=== PATIENT | female | born 1935 | race Caucasian/White ===

== ENCOUNTER 2021-02-02 21:23 | Observation (INO) ==
[2021-02-02] MEDS ORDERED: 0.9 % Sodium Chloride 500 ML IVC ONE (22:02)
[2021-02-02 22:25] LABS: Basophils # 0.1 K/mcL (0.0-0.2); Basophils % 0.5 %; Eosinophils # 0.2 K/mcL (0.0-0.6); Eosinophils % 1.8 %; Hematocrit 33.7 % (35.3-44.9); Hemoglobin 10.8 g/dL (11.5-15.4); Immature Granulocytes % 0.4 % (0-4); Lymphocytes # 3.4 K/mcL (0.6-4.6); Lymphocytes % 29.9 %; Mean Corpuscular Volume 99.7 fL (83.0-100.0); Mean Platelet Volume 9.8 fL (9.4-12.4); Monocytes # 0.9 K/mcL (0.0-1.3); Monocytes % 7.8 %; Neutrophils # 6.7 K/mcL (1.6-8.9); Platelet Count 305 K/mcL (140-400); Red Blood Count 3.38 M/mcL (3.82-4.97); Red Cell Distribution Width 15.3 % (11.5-14.5); Segmented Neutrophils % 59.6 %; White Blood Count 11.3 K/mcL (4.3-11.1)
[2021-02-02 22:41] LABS: Troponin I < 0.03 ng/mL (< 0.04)
[2021-02-02 22:43] LABS: Alanine Aminotransferase 7 Units/L (7-52); Albumin/Globulin Ratio 1.4 (1.1-2.2); Alkaline Phosphatase 46 Units/L (34-104); Aspartate Amino Transferase 15 Units/L (13-39); BUN/Creatinine Ratio 14 (6-26); Bilirubin,Total 0.7 mg/dL (0.3-1.0); Blood Urea Nitrogen 14 mg/dL (8-23); Calcium 8.5 mg/dL (8.6-10.3); Carbon Dioxide 18 mEq/L (23-29); Chloride 106 mEq/L (98-107); Globulin 2.1 g/dL (2.4-3.5); Glucose 83 mg/dL (70-105); Osmolality,Calculated 280 (280-300); Potassium 4.1 mEq/L (3.5-5.1); Sodium 135 mEq/L (136-145); Total Protein 5.1 g/dL (6.4-8.9); eGFR For African Americans > 60 (> 60); eGFR For Non-African Americans 53 (> 60)
[2021-02-02 22:53] LABS: Bilirubin,Urine Negative (Negative); Blood,Urine Negative (Negative); Clarity,Urine Slightly Cloudy (Clear); Glucose,Urine (UA) Normal (Normal); Ketones,Urine Negative (Negative); Leukocyte Esterase,Urine Negative (Negative); Nitrite,Urine Negative (Negative); Protein,Urine Negative (Neg-Trace); Urobilinogen,Urine Normal (Normal)
[2021-02-02 22:54] LABS: Color,Urine Light Yellow (Yellow)
[2021-02-03] MEDS ORDERED: Naloxone 0.4 MG/ML INJ IVP PRN (03:04)
[2021-02-03] MEDS ORDERED: Acetaminophen 325 MG TABLET PO PRN (03:04)
[2021-02-03] MEDS ORDERED: Ondansetron ODT 4 MG TAB.RAPDIS SL PRN (03:04)
[2021-02-03] MEDS ORDERED: Isovue-370 500 ML BOTTLE IVP ONE ×4 (03:04→09:49)
[2021-02-03] MEDS: cilostazoL 100 MG TABLET PO SCH ×3 (03:24→22:11)
[2021-02-03] MEDS: Ketorolac OPTH Soln 5 ML BOTTLE RIGHT EYE SCH ×5 (03:25→22:12)
[2021-02-03] MEDS: Levothyroxine 25 MCG TABLET PO SCH (05:19)
[2021-02-03] MEDS: PARoxetine 10 MG TABLET PO SCH (09:55)
[2021-02-03] MEDS ORDERED: Gadolinium Contrast Agent (WT Based) IV PRN (14:17)
[2021-02-04] MEDS: Levothyroxine 25 MCG TABLET PO SCH (06:47)
[2021-02-04] MEDS: PARoxetine 10 MG TABLET PO SCH (10:05)
[2021-02-04] MEDS: cilostazoL 100 MG TABLET PO SCH (10:05)
[2021-02-04] MEDS: Ketorolac OPTH Soln 5 ML BOTTLE RIGHT EYE SCH ×4 (10:05→21:02)
[2021-02-05] MEDS: Levothyroxine 25 MCG TABLET PO SCH (05:26)
[2021-02-05] MEDS: Ketorolac OPTH Soln 5 ML BOTTLE RIGHT EYE SCH ×4 (09:48→21:39)
[2021-02-05] MEDS: PARoxetine 10 MG TABLET PO SCH (09:49)
[2021-02-05 10:04] LABS: Basophils % 0.4 %; Eosinophils # 0.4 K/mcL (0.0-0.6); Eosinophils % 4.2 %; Hematocrit 32.4 % (35.3-44.9); Hemoglobin 10.3 g/dL (11.5-15.4); Immature Granulocytes % 0.7 % (0-4); Lymphocytes # 2.5 K/mcL (0.6-4.6); Lymphocytes % 24.9 %; Mean Corpuscular HGB Conc 31.8 g/dL (31.6-35.5); Mean Corpuscular Hemoglobin 31.6 pg (28.0-33.3); Mean Corpuscular Volume 99.4 fL (83.0-100.0); Mean Platelet Volume 9.5 fL (9.4-12.4); Monocytes # 0.8 K/mcL (0.0-1.3); Monocytes % 7.4 %; Neutrophils # 6.3 K/mcL (1.6-8.9); Platelet Count 315 K/mcL (140-400); Red Blood Count 3.26 M/mcL (3.82-4.97); Red Cell Distribution Width 15.5 % (11.5-14.5); Segmented Neutrophils % 62.4 %; White Blood Count 10.1 K/mcL (4.3-11.1)
[2021-02-05 10:18] LABS: Calcium 8.2 mg/dL (8.6-10.3); Potassium 3.1 mEq/L (3.5-5.1)
[2021-02-05] MEDS: *HR* Heparin 5,000 UNIT/ML VIAL SQ SCH ×2 (14:12→21:43)
[2021-02-06] MEDS: *HR* Heparin 5,000 UNIT/ML VIAL SQ SCH ×2 (06:25→14:34)
[2021-02-06] MEDS: Levothyroxine 25 MCG TABLET PO SCH (06:25)
[2021-02-06] MEDS: PARoxetine 10 MG TABLET PO SCH (08:47)
[2021-02-06] MEDS: Ketorolac OPTH Soln 5 ML BOTTLE RIGHT EYE SCH ×2 (08:47→12:05)
[2021-02-06 11:27] LABS: Basophils # 0.1 K/mcL (0.0-0.2); Basophils % 0.5 %; Eosinophils # 0.3 K/mcL (0.0-0.6); Eosinophils % 3.2 %; Hematocrit 32.1 % (35.3-44.9); Hemoglobin 10.4 g/dL (11.5-15.4); Immature Granulocytes % 0.6 % (0-4); Lymphocytes # 1.9 K/mcL (0.6-4.6); Lymphocytes % 17.4 %; Mean Corpuscular HGB Conc 32.4 g/dL (31.6-35.5); Mean Corpuscular Volume 98.8 fL (83.0-100.0); Mean Platelet Volume 9.4 fL (9.4-12.4); Monocytes # 0.7 K/mcL (0.0-1.3); Monocytes % 6.7 %; Neutrophils # 7.6 K/mcL (1.6-8.9); Platelet Count 287 K/mcL (140-400); Red Blood Count 3.25 M/mcL (3.82-4.97); Red Cell Distribution Width 15.5 % (11.5-14.5); Segmented Neutrophils % 71.6 %; White Blood Count 10.6 K/mcL (4.3-11.1)
[2021-02-06 11:40] LABS: Potassium 3.5 mEq/L (3.5-5.1)
[2021-02-06 16:08] VITALS: BP 145/83; PULSE 75; RESP 16; TEMP 97.5; O2SAT 87
== END 2021-02-06 16:45 ==
LOC: EMEROOGRE 21:23 → INPGRE 21:23
PROVIDERS: ADMIT Internal Medicine; ATTEND Family Medicine

== ENCOUNTER 2021-02-06 11:36 | Inpatient (IN) ==
[2021-02-06] MEDS ORDERED: Naloxone 0.4 MG/ML INJ IVP PRN (17:24)
[2021-02-06] MEDS ORDERED: Ondansetron ODT 4 MG TAB.RAPDIS SL PRN (17:25)
[2021-02-06] MEDS: Ketorolac OPTH Soln 5 ML BOTTLE RIGHT EYE SCH (20:59)
[2021-02-06] MEDS: *HR* Heparin 5,000 UNIT/ML VIAL SQ SCH (20:59)
[2021-02-07] MEDS: *HR* Heparin 5,000 UNIT/ML VIAL SQ SCH ×3 (05:36→20:58)
[2021-02-07] MEDS: Levothyroxine 25 MCG TABLET PO SCH (05:36)
[2021-02-07] MEDS: PARoxetine 10 MG TABLET PO SCH (09:05)
[2021-02-07] MEDS: Ketorolac OPTH Soln 5 ML BOTTLE RIGHT EYE SCH ×4 (09:05→20:57)
[2021-02-07] MEDS: Acetaminophen 325 MG TABLET PO PRN (17:34)
[2021-02-08] MEDS: *HR* Heparin 5,000 UNIT/ML VIAL SQ SCH ×3 (06:21→21:25)
[2021-02-08] MEDS: Levothyroxine 25 MCG TABLET PO SCH (06:22)
[2021-02-08] MEDS: PARoxetine 10 MG TABLET PO SCH (08:38)
[2021-02-08] MEDS: Ketorolac OPTH Soln 5 ML BOTTLE RIGHT EYE SCH ×4 (08:39→21:25)
[2021-02-08] MEDS: Acetaminophen 325 MG TABLET PO PRN (21:25)
[2021-02-09] MEDS: Levothyroxine 25 MCG TABLET PO SCH (04:22)
[2021-02-09] MEDS: *HR* Heparin 5,000 UNIT/ML VIAL SQ SCH ×3 (04:22→21:09)
[2021-02-09 05:11] LABS: BUN/Creatinine Ratio 12 (6-26); Blood Urea Nitrogen 11 mg/dL (8-23); Calcium 7.9 mg/dL (8.6-10.3); Carbon Dioxide 23 mEq/L (23-29); Chloride 107 mEq/L (98-107); Glucose 102 mg/dL (70-105); Osmolality,Calculated 290 (280-300); Potassium 3.2 mEq/L (3.5-5.1); Sodium 140 mEq/L (136-145); eGFR For African Americans > 60 (> 60); eGFR For Non-African Americans 59 (> 60)
[2021-02-09 05:45] LABS: Basophils # 0.1 K/mcL (0.0-0.2); Basophils % 0.5 %; Eosinophils # 0.3 K/mcL (0.0-0.6); Eosinophils % 3.1 %; Hematocrit 32.6 % (35.3-44.9); Hemoglobin 10.5 g/dL (11.5-15.4); Immature Granulocytes % 0.6 % (0-4); Lymphocytes # 2.8 K/mcL (0.6-4.6); Mean Corpuscular HGB Conc 32.2 g/dL (31.6-35.5); Mean Corpuscular Hemoglobin 32.4 pg (28.0-33.3); Mean Corpuscular Volume 100.6 fL (83.0-100.0); Mean Platelet Volume 10.2 fL (9.4-12.4); Monocytes # 0.6 K/mcL (0.0-1.3); Monocytes % 5.7 %; Neutrophils # 6.4 K/mcL (1.6-8.9); Platelet Count 300 K/mcL (140-400); Red Blood Count 3.24 M/mcL (3.82-4.97); Red Cell Distribution Width 15.8 % (11.5-14.5); Segmented Neutrophils % 63.1 %; White Blood Count 10.2 K/mcL (4.3-11.1)
[2021-02-09] MEDS: PARoxetine 10 MG TABLET PO SCH (08:45)
[2021-02-09] MEDS: Ketorolac OPTH Soln 5 ML BOTTLE RIGHT EYE SCH ×4 (08:49→21:09)
[2021-02-10] MEDS: Levothyroxine 25 MCG TABLET PO SCH (05:39)
[2021-02-10] MEDS: *HR* Heparin 5,000 UNIT/ML VIAL SQ SCH ×3 (05:40→20:21)
[2021-02-10] MEDS: PARoxetine 10 MG TABLET PO SCH (09:21)
[2021-02-10] MEDS: Ketorolac OPTH Soln 5 ML BOTTLE RIGHT EYE SCH ×4 (09:21→20:21)
[2021-02-10 20:15] VITALS: RESP 16
[2021-02-11] MEDS: Levothyroxine 25 MCG TABLET PO SCH (04:23)
[2021-02-11] MEDS: *HR* Heparin 5,000 UNIT/ML VIAL SQ SCH ×2 (04:23→15:53)
[2021-02-11 07:09] VITALS: BP 123/62; PULSE 74; TEMP 98.2; O2SAT 95
[2021-02-11] MEDS: Acetaminophen 325 MG TABLET PO PRN (09:24)
[2021-02-11] MEDS: Ketorolac OPTH Soln 5 ML BOTTLE RIGHT EYE SCH ×2 (09:25→15:59)
== END 2021-02-11 16:07 | disposition home health service (06) | DRG 945 ==
LOC: INPGRE 16:42
PROVIDERS: ADMIT Family Medicine; ATTEND Family Medicine

== ENCOUNTER 2021-09-12 12:23 | Inpatient (IN) ==
[~2021-09-12 12:23] MED LIST: Neosporin OINT 15 GM TUBE TP SCH
[2021-09-13] MEDS: *HR* Enoxaparin 30 MG/0.3 ML SYRINGE SQ SCH (05:35)
[2021-09-13] MEDS: Levothyroxine 25 MCG TABLET PO SCH (05:35)
[2021-09-13] MEDS ORDERED: POVIDONE IODINE TP SCH (09:00)
[2021-09-13] MEDS: PARoxetine 10 MG TABLET PO SCH (10:13)
[2021-09-14 04:41] LABS: Basophils % 0.2 %; Eosinophils # 0.2 K/mcL (0.0-0.6); Eosinophils % 1.5 %; Hematocrit 33.5 % (35.3-44.9); Hemoglobin 10.8 g/dL (11.5-15.4); Immature Granulocytes % 0.5 % (0-4); Lymphocytes % 27.3 %; Mean Corpuscular HGB Conc 32.2 g/dL (31.6-35.5); Mean Corpuscular Hemoglobin 32.5 pg (28.0-33.3); Mean Corpuscular Volume 100.9 fL (83.0-100.0); Mean Platelet Volume 10.2 fL (9.4-12.4); Monocytes # 0.7 K/mcL (0.0-1.3); Monocytes % 6.8 %; Neutrophils # 6.9 K/mcL (1.6-8.9); Platelet Count 244 K/mcL (140-400); Red Blood Count 3.32 M/mcL (3.82-4.97); Segmented Neutrophils % 63.7 %; White Blood Count 10.8 K/mcL (4.3-11.1)
[2021-09-14 04:57] LABS: BUN/Creatinine Ratio 23 (6-26); Blood Urea Nitrogen 20 mg/dL (8-23); Carbon Dioxide 28 mEq/L (23-29); Chloride 105 mEq/L (98-107); Glucose 79 mg/dL (70-105); Magnesium 1.6 mg/dL (1.6-2.6); Osmolality,Calculated 288 (280-300); Sodium 138 mEq/L (136-145); eGFR For African Americans > 60 (> 60); eGFR For Non-African Americans > 60 (> 60)
[2021-09-14] MEDS: Levothyroxine 25 MCG TABLET PO SCH (05:18)
[2021-09-14] MEDS: *HR* Enoxaparin 30 MG/0.3 ML SYRINGE SQ SCH (05:18)
[2021-09-14] MEDS: PARoxetine 10 MG TABLET PO SCH (08:18)
[2021-09-15] MEDS: Levothyroxine 25 MCG TABLET PO SCH (05:21)
[2021-09-15] MEDS: *HR* Enoxaparin 30 MG/0.3 ML SYRINGE SQ SCH (05:22)
[2021-09-15 06:08] LABS: Basophils % 0.2 %; Eosinophils # 0.3 K/mcL (0.0-0.6); Eosinophils % 3.1 %; Hematocrit 36.2 % (35.3-44.9); Hemoglobin 11.8 g/dL (11.5-15.4); Immature Granulocytes % 0.5 % (0-4); Lymphocytes # 2.6 K/mcL (0.6-4.6); Lymphocytes % 24.3 %; Mean Corpuscular HGB Conc 32.6 g/dL (31.6-35.5); Mean Corpuscular Hemoglobin 32.8 pg (28.0-33.3); Mean Corpuscular Volume 100.6 fL (83.0-100.0); Mean Platelet Volume 10.1 fL (9.4-12.4); Monocytes # 0.8 K/mcL (0.0-1.3); Platelet Count 255 K/mcL (140-400); Red Cell Distribution Width 15.9 % (11.5-14.5); Segmented Neutrophils % 64.9 %; White Blood Count 10.8 K/mcL (4.3-11.1)
[2021-09-15 06:27] LABS: BUN/Creatinine Ratio 20 (6-26); Blood Urea Nitrogen 18 mg/dL (8-23); Calcium 9.2 mg/dL (8.6-10.3); Carbon Dioxide 28 mEq/L (23-29); Chloride 104 mEq/L (98-107); Glucose 81 mg/dL (70-105); Magnesium 1.7 mg/dL (1.6-2.6); Osmolality,Calculated 287 (280-300); Sodium 138 mEq/L (136-145); eGFR For African Americans > 60 (> 60); eGFR For Non-African Americans 59 (> 60)
[2021-09-15 13:21] LABS: % Iron Saturation 29 % (15-50); Iron 81 mcg/dL (50-170); Transferrin 202 mg/dL (203-362)
[2021-09-16] MEDS: Levothyroxine 25 MCG TABLET PO SCH (05:21)
[2021-09-16] MEDS: *HR* Enoxaparin 30 MG/0.3 ML SYRINGE SQ SCH (05:21)
[2021-09-17] MEDS: Levothyroxine 25 MCG TABLET PO SCH (06:56)
[2021-09-17] MEDS: *HR* Enoxaparin 30 MG/0.3 ML SYRINGE SQ SCH (06:56)
[2021-09-17] MEDS ORDERED: polyethylene glycoL 3350 17 GM POWD.PACK PO PRN (09:27)
[2021-09-17] MEDS ORDERED: Acetaminophen 325 MG TABLET PO PRN (23:44)
[2021-09-18] MEDS: Levothyroxine 25 MCG TABLET PO SCH (05:59)
[2021-09-18] MEDS: *HR* Enoxaparin 30 MG/0.3 ML SYRINGE SQ SCH (05:59)
[2021-09-18 11:37] LABS: Bilirubin,Urine Negative (Negative); Blood,Urine Negative (Negative); Clarity,Urine Clear (Clear); Color,Urine Yellow (Yellow); Glucose,Urine (UA) Normal (Normal); Ketones,Urine Negative (Negative); Leukocyte Esterase,Urine Trace (Negative); Nitrite,Urine Positive (Negative); PH,Urine 6.5 pH Units (5.0-8.0); Protein,Urine Negative (Neg-Trace); Specific Gravity,Urine 1.015 (1.010-1.025); Urobilinogen,Urine Normal (Normal)
[2021-09-18 11:40] VITALS: BP 121/67; PULSE 68; RESP 15; TEMP 98.5; O2SAT 100
[2021-09-18 11:43] LABS: Bacteria,Urine Many per hpf (None-Few); Squamous Epithelial Cell,Urine Few per hpf (None-Few); Transitional Epi Cells,Urine Moderate per hpf (None-Few)
== END 2021-09-18 14:48 | disposition home or self-care (01) | DRG 178 ==
LOC: INPGRE 12:23
PROVIDERS: ADMIT Family Medicine; ATTEND Family Medicine

== ENCOUNTER 2021-11-30 00:51 | Inpatient (IN) ==
[2021-11-30] MEDS ORDERED: 0.9 % Sodium Chloride 1,000 ML IVC ONE (01:06)
[2021-11-30 01:32] LABS: Basophils # 0.1 K/mcL (0.0-0.2); Basophils % 0.4 %; Eosinophils # 0.3 K/mcL (0.0-0.6); Eosinophils % 2.3 %; Hematocrit 39.6 % (35.3-44.9); Hemoglobin 12.8 g/dL (11.5-15.4); Immature Granulocytes % 0.5 % (0-4); Lymphocytes # 2.4 K/mcL (0.6-4.6); Lymphocytes % 20.4 %; Mean Corpuscular HGB Conc 32.3 g/dL (31.6-35.5); Mean Corpuscular Hemoglobin 33.2 pg (28.0-33.3); Mean Corpuscular Volume 102.6 fL (83.0-100.0); Mean Platelet Volume 10.2 fL (9.4-12.4); Monocytes # 0.7 K/mcL (0.0-1.3); Monocytes % 5.7 %; Neutrophils # 8.2 K/mcL (1.6-8.9); Platelet Count 359 K/mcL (140-400); Red Blood Count 3.86 M/mcL (3.82-4.97); Red Cell Distribution Width 14.9 % (11.5-14.5); Segmented Neutrophils % 70.7 %; White Blood Count 11.6 K/mcL (4.3-11.1)
[2021-11-30 01:38] LABS: Prothrombin Time 11.3 Seconds (9.4-12.1)
[2021-11-30 01:40] LABS: Activated Partial Thrombo Time 33.1 Seconds (26.0-36.0)
[2021-11-30 01:46] LABS: Calcium 9.7 mg/dL (8.6-10.3); Potassium 4.5 mEq/L (3.5-5.1)
[2021-11-30 01:49] LABS: Troponin I 0.03 ng/mL (< 0.04)
[2021-11-30 02:02] LABS: Thyroid Stimulating Hormone 5.453 mcIU/mL (0.340-5.600)
[2021-11-30 02:02] LABS: Bilirubin,Urine Negative (Negative); Blood,Urine Negative (Negative); Clarity,Urine Clear (Clear); Color,Urine Yellow (Yellow); Glucose,Urine (UA) Normal (Normal); Ketones,Urine Negative (Negative); Leukocyte Esterase,Urine Small (Negative); Nitrite,Urine Negative (Negative); PH,Urine 5.5 pH Units (5.0-8.0); Protein,Urine 30 mg/dL (Neg-Trace); Urobilinogen,Urine Normal (Normal)
[2021-11-30 02:10] LABS: RBC,Urine 0-3 per hpf (0-3); WBC,Urine 15-30 per hpf (0-3)
[2021-11-30 02:12] LABS: Bacteria,Urine Few per hpf (None-Few); Squamous Epithelial Cell,Urine Few per hpf (None-Few)
[2021-11-30] MEDS ORDERED: cefTRIAXone 1,000 MG in Water for inj. (sterile) 10 ML IVP ONE (02:13)
[2021-11-30] MEDS ORDERED: Naloxone 0.4 MG/ML INJ IVP PRN ×2 (02:39→03:13)
[2021-11-30] MEDS ORDERED: 0.9 % Sodium Chloride 1,000 ML IVC SCH (02:45)
[2021-11-30] MEDS: 0.9 % Sodium Chloride 1,000 ML IVC SCH ×3 (03:57→19:41)
[2021-11-30] MEDS: Levothyroxine 25 MCG TABLET PO SCH (06:29)
[2021-11-30 06:44] LABS: BUN/Creatinine Ratio 21 (6-26); Blood Urea Nitrogen 26 mg/dL (8-23); Calcium 8.2 mg/dL (8.6-10.3); Carbon Dioxide 22 mEq/L (23-29); Chloride 110 mEq/L (98-107); Glucose 95 mg/dL (70-105); Osmolality,Calculated 293 (280-300); Potassium 4.6 mEq/L (3.5-5.1); Sodium 139 mEq/L (136-145); Troponin I < 0.03 ng/mL (< 0.04); eGFR For African Americans 50 (> 60); eGFR For Non-African Americans 41 (> 60)
[2021-11-30] MEDS: Cholecalciferol (D-3) 1,000 UNIT (25MCG) TABLET PO SCH ×2 (08:51→22:45)
[2021-11-30] MEDS: Aspirin 81 MG TAB.CHEW PO SCH (08:51)
[2021-11-30] MEDS: Loratadine 10 MG TABLET PO SCH (08:51)
[2021-11-30 14:48] LABS: Adenovirus Not Detected (Not Detect); Bordetella Pertussis Not Detected (Not Detect); Chlamydophila pneumoniae Not Detected (Not Detect); Coronavirus 229E Not Detected (Not Detect); Coronavirus HKU1 Not Detected (Not Detect); Coronavirus NL63 Not Detected (Not Detect); Coronavirus OC43 Not Detected (Not Detect); Human Metapneumovirus Not Detected (Not Detect); Human Rhinovirus/Enterovirus Not Detected (Not Detect); Influenza A Subtype 2009 H1 Not Detected (Not Detect); Influenza B Not Detected (Not Detect); Mycoplasma pneumoniae Not Detected (Not Detect); Parainfluenza Virus 1 Not Detected (Not Detect); Parainfluenza Virus 2 Not Detected (Not Detect); Parainfluenza Virus 3 Not Detected (Not Detect); Parainfluenza Virus 4 Not Detected (Not Detect); Respiratory Syncytial Virus Not Detected (Not Detect); SARS-CoV-2 Not Detected (Not Detect)
[2021-12-01] MEDS: 0.9 % Sodium Chloride 1,000 ML IVC SCH ×2 (03:30→12:24)
[2021-12-01 05:04] LABS: Basophils # 0.1 K/mcL (0.0-0.2); Basophils % 0.5 %; Eosinophils # 0.5 K/mcL (0.0-0.6); Eosinophils % 3.7 %; Hematocrit 32.9 % (35.3-44.9); Hemoglobin 10.3 g/dL (11.5-15.4); Immature Granulocytes % 0.5 % (0-4); Lymphocytes # 2.3 K/mcL (0.6-4.6); Lymphocytes % 17.4 %; Mean Corpuscular HGB Conc 31.3 g/dL (31.6-35.5); Mean Corpuscular Hemoglobin 32.6 pg (28.0-33.3); Mean Corpuscular Volume 104.1 fL (83.0-100.0); Mean Platelet Volume 10.4 fL (9.4-12.4); Monocytes # 0.5 K/mcL (0.0-1.3); Monocytes % 3.8 %; Neutrophils # 9.7 K/mcL (1.6-8.9); Nucleated Red Blood Cells 0.2 /100 WBC (0); Platelet Count 269 K/mcL (140-400); Red Blood Count 3.16 M/mcL (3.82-4.97); Red Cell Distribution Width 15.1 % (11.5-14.5); Segmented Neutrophils % 74.1 %; White Blood Count 13.1 K/mcL (4.3-11.1)
[2021-12-01 05:20] LABS: Alanine Aminotransferase 30 Units/L (7-52); Albumin/Globulin Ratio 1.4 (1.1-2.2); Alkaline Phosphatase 65 Units/L (34-104); Aspartate Amino Transferase 38 Units/L (13-39); BUN/Creatinine Ratio 19 (6-26); Bilirubin,Total 0.4 mg/dL (0.3-1.0); Blood Urea Nitrogen 20 mg/dL (8-23); Calcium 7.3 mg/dL (8.6-10.3); Carbon Dioxide 16 mEq/L (23-29); Chloride 115 mEq/L (98-107); Globulin 2.1 g/dL (2.4-3.5); Glucose 117 mg/dL (70-105); Osmolality,Calculated 294 (280-300); Potassium 4.6 mEq/L (3.5-5.1); Sodium 140 mEq/L (136-145); Total Protein 5.1 g/dL (6.4-8.9); eGFR For African Americans > 60 (> 60); eGFR For Non-African Americans 50 (> 60)
[2021-12-01] MEDS: Levothyroxine 25 MCG TABLET PO SCH (06:19)
[2021-12-01] MEDS: *HR* Enoxaparin 30 MG/0.3 ML SYRINGE SQ SCH (06:19)
[2021-12-01] MEDS: Loratadine 10 MG TABLET PO SCH (07:34)
[2021-12-01] MEDS: Cholecalciferol (D-3) 1,000 UNIT (25MCG) TABLET PO SCH ×2 (07:35→21:01)
[2021-12-01] MEDS: Aspirin 81 MG TAB.CHEW PO SCH (07:35)
[2021-12-01] MEDS ORDERED: Menthol 1 EACH LOZENGE PO PRN (10:35)
[2021-12-01] MEDS ORDERED: Perflutren Lipid Microsphere 1.3 ML in 0.9 % Sodium Chloride 8.7 ML IVP PRN (10:49)
[2021-12-01] MEDS ORDERED: Ipratropium/Albuterol Neb 3 ML IH PRN (12:53)
[2021-12-01] MEDS ORDERED: cefTRIAXone 1,000 MG in 0.9 % Sodium Chloride 10 ML IVP SCH (13:00)
[2021-12-01] MEDS: MetroNIDAZOLE 500 MG/100 ML 500 MG/100 ML BAG IVPB SCH ×2 (14:01→21:01)
[2021-12-01 15:12] LABS: Calcium 7.4 mg/dL (8.6-10.3); Magnesium 2.3 mg/dL (1.6-2.6); Potassium 4.7 mEq/L (3.5-5.1)
[2021-12-01] MEDS: Budesonide/Formoterol 160/4.5 1 PUFF INH IH SCH ×2 (15:14→21:29)
[2021-12-02 05:01] LABS: Hematocrit 32.9 % (35.3-44.9); Hemoglobin 10.5 g/dL (11.5-15.4); Mean Corpuscular HGB Conc 31.9 g/dL (31.6-35.5); Mean Corpuscular Hemoglobin 33.1 pg (28.0-33.3); Mean Corpuscular Volume 103.8 fL (83.0-100.0); Mean Platelet Volume 10.3 fL (9.4-12.4); Platelet Count 280 K/mcL (140-400); Red Blood Count 3.17 M/mcL (3.82-4.97); Red Cell Distribution Width 15.3 % (11.5-14.5); White Blood Count 11.7 K/mcL (4.3-11.1)
[2021-12-02] MEDS: Levothyroxine 25 MCG TABLET PO SCH (05:13)
[2021-12-02] MEDS: *HR* Enoxaparin 30 MG/0.3 ML SYRINGE SQ SCH (05:14)
[2021-12-02] MEDS: MetroNIDAZOLE 500 MG/100 ML 500 MG/100 ML BAG IVPB SCH (05:14)
[2021-12-02 05:18] LABS: Calcium 7.7 mg/dL (8.6-10.3); Magnesium 2.1 mg/dL (1.6-2.6); Potassium 4.8 mEq/L (3.5-5.1)
[2021-12-02] MEDS: Cholecalciferol (D-3) 1,000 UNIT (25MCG) TABLET PO SCH (09:08)
[2021-12-02] MEDS: Aspirin 81 MG TAB.CHEW PO SCH (09:09)
[2021-12-02] MEDS: Loratadine 10 MG TABLET PO SCH (09:09)
[2021-12-02] MEDS: Budesonide/Formoterol 160/4.5 1 PUFF INH IH SCH (10:38)
[2021-12-02 11:27] VITALS: BP 111/73; PULSE 92; RESP 14; TEMP 97.8; O2SAT 93
== END 2021-12-02 13:10 | disposition short-term general hospital (02) | DRG 306 ==
LOC: EMEROOGRE 00:51 → INPGRE 00:51 → SUATTDRO 02:57 → INPGRE 03:08
PROVIDERS: ADMIT Internal Medicine; ATTEND Family Medicine

== ENCOUNTER 2021-12-11 13:29 | Inpatient (IN) ==
[2021-12-12] MEDS ORDERED: Ipratropium/Albuterol Neb 3 ML IH PRN (20:11)
[2021-12-12] MEDS ORDERED: Furosemide 40 MG TABLET PO PRN (20:11)
[2021-12-12] MEDS ORDERED: polyethylene glycoL 3350 17 GM POWD.PACK PO PRN (20:11)
[2021-12-12] MEDS ORDERED: Ondansetron ODT 4 MG TAB.RAPDIS SL PRN (20:11)
[2021-12-12] MEDS ORDERED: Melatonin 3 MG TABLET PO SCH (21:00)
[2021-12-12] MEDS: Acetaminophen 325 MG TABLET PO PRN (21:49)
[2021-12-12] MEDS: Nystatin SUSP 5 ML UD.LIQ PO SCH (21:49)
[2021-12-12] MEDS: Sildenafil Citrate 20 MG TABLET PO SCH (21:50)
[2021-12-12] MEDS: *HR* Heparin 5,000 UNIT/ML VIAL SQ SCH (21:50)
[2021-12-12] MEDS: Sennosides/Docusate Sodium TABLET PO SCH (21:50)
[2021-12-13 04:49] LABS: Basophils % 0.4 %; Eosinophils # 0.5 K/mcL (0.0-0.6); Eosinophils % 5.3 %; Hemoglobin 10.4 g/dL (11.5-15.4); Immature Granulocytes % 0.6 % (0-4); Lymphocytes # 1.4 K/mcL (0.6-4.6); Lymphocytes % 15.6 %; Mean Corpuscular HGB Conc 32.5 g/dL (31.6-35.5); Mean Corpuscular Hemoglobin 33.1 pg (28.0-33.3); Mean Corpuscular Volume 101.9 fL (83.0-100.0); Monocytes # 0.5 K/mcL (0.0-1.3); Monocytes % 5.3 %; Neutrophils # 6.6 K/mcL (1.6-8.9); Platelet Count 212 K/mcL (140-400); Red Blood Count 3.14 M/mcL (3.82-4.97); Red Cell Distribution Width 18.2 % (11.5-14.5); Segmented Neutrophils % 72.8 %
[2021-12-13 05:02] LABS: BUN/Creatinine Ratio 17 (6-26); Blood Urea Nitrogen 18 mg/dL (8-23); Calcium 8.9 mg/dL (8.6-10.3); Carbon Dioxide 23 mEq/L (23-29); Chloride 106 mEq/L (98-107); Glucose 94 mg/dL (70-105); Osmolality,Calculated 282 (280-300); Potassium 4.4 mEq/L (3.5-5.1); Sodium 135 mEq/L (136-145); eGFR For African Americans > 60 (> 60); eGFR For Non-African Americans 50 (> 60)
[2021-12-13] MEDS: Levothyroxine 25 MCG TABLET PO SCH (05:32)
[2021-12-13] MEDS: Nystatin SUSP 5 ML UD.LIQ PO SCH ×4 (08:20→20:36)
[2021-12-13] MEDS: Sildenafil Citrate 20 MG TABLET PO SCH ×3 (08:20→20:36)
[2021-12-13] MEDS: Fenofibrate 54 MG TABLET PO SCH (08:20)
[2021-12-13] MEDS: Sennosides/Docusate Sodium TABLET PO SCH ×2 (08:20→20:40)
[2021-12-13] MEDS: Loratadine 10 MG TABLET PO SCH (08:20)
[2021-12-13] MEDS ORDERED: Furosemide 20 MG TABLET PO SCH (09:00)
[2021-12-13] MEDS: *HR* Heparin 5,000 UNIT/ML VIAL SQ SCH (09:37)
[2021-12-13] MEDS: Aspirin Enteric Coated 81 MG Tablet PO SCH (09:38)
[2021-12-13] MEDS: Melatonin 3 MG TABLET PO PRN (20:40)
[2021-12-14 04:49] LABS: Basophils # 0.1 K/mcL (0.0-0.2); Basophils % 0.6 %; Eosinophils # 0.7 K/mcL (0.0-0.6); Eosinophils % 7.5 %; Hematocrit 30.1 % (35.3-44.9); Hemoglobin 9.9 g/dL (11.5-15.4); Immature Granulocytes % 0.5 % (0-4); Lymphocytes # 1.7 K/mcL (0.6-4.6); Lymphocytes % 19.7 %; Mean Corpuscular HGB Conc 32.9 g/dL (31.6-35.5); Mean Corpuscular Hemoglobin 33.4 pg (28.0-33.3); Mean Corpuscular Volume 101.7 fL (83.0-100.0); Mean Platelet Volume 10.7 fL (9.4-12.4); Monocytes # 0.5 K/mcL (0.0-1.3); Monocytes % 5.3 %; Neutrophils # 5.8 K/mcL (1.6-8.9); Platelet Count 242 K/mcL (140-400); Red Blood Count 2.96 M/mcL (3.82-4.97); Segmented Neutrophils % 66.4 %; White Blood Count 8.7 K/mcL (4.3-11.1)
[2021-12-14 05:05] LABS: Calcium 8.3 mg/dL (8.6-10.3); Potassium 4.6 mEq/L (3.5-5.1)
[2021-12-14] MEDS: *HR* Enoxaparin 30 MG/0.3 ML SYRINGE SQ SCH (05:10)
[2021-12-14] MEDS: Levothyroxine 25 MCG TABLET PO SCH (05:10)
[2021-12-14] MEDS: Fenofibrate 54 MG TABLET PO SCH (08:47)
[2021-12-14] MEDS: Sildenafil Citrate 20 MG TABLET PO SCH ×3 (08:47→21:52)
[2021-12-14] MEDS: Sennosides/Docusate Sodium TABLET PO SCH ×2 (08:47→21:52)
[2021-12-14] MEDS: Nystatin SUSP 5 ML UD.LIQ PO SCH ×4 (08:48→21:51)
[2021-12-14] MEDS: Aspirin Enteric Coated 81 MG Tablet PO SCH (08:48)
[2021-12-14] MEDS: Loratadine 10 MG TABLET PO SCH (08:48)
[2021-12-14] MEDS: Furosemide 20 MG TABLET PO SCH (16:04)
[2021-12-14] MEDS: Acetaminophen 325 MG TABLET PO PRN (21:51)
[2021-12-14] MEDS: Melatonin 3 MG TABLET PO PRN (21:52)
[2021-12-15] MEDS: Levothyroxine 25 MCG TABLET PO SCH (06:22)
[2021-12-15] MEDS: *HR* Enoxaparin 30 MG/0.3 ML SYRINGE SQ SCH (06:22)
[2021-12-15] MEDS: Aspirin Enteric Coated 81 MG Tablet PO SCH (09:58)
[2021-12-15] MEDS: Sildenafil Citrate 20 MG TABLET PO SCH ×3 (09:58→21:14)
[2021-12-15] MEDS: Loratadine 10 MG TABLET PO SCH (09:58)
[2021-12-15] MEDS: Sennosides/Docusate Sodium TABLET PO SCH ×2 (09:58→21:13)
[2021-12-15] MEDS: Fenofibrate 54 MG TABLET PO SCH (09:58)
[2021-12-15] MEDS: Furosemide 20 MG TABLET PO SCH ×2 (09:59→17:45)
[2021-12-15] MEDS: Nystatin SUSP 5 ML UD.LIQ PO SCH ×4 (09:59→21:14)
[2021-12-15] MEDS: Acetaminophen 325 MG TABLET PO PRN (21:13)
[2021-12-15] MEDS: Melatonin 3 MG TABLET PO PRN (21:14)
[2021-12-16] MEDS: *HR* Enoxaparin 30 MG/0.3 ML SYRINGE SQ SCH (05:43)
[2021-12-16] MEDS: Levothyroxine 25 MCG TABLET PO SCH (05:44)
[2021-12-16] MEDS: Acetaminophen 325 MG TABLET PO PRN (09:08)
[2021-12-16] MEDS: Fenofibrate 54 MG TABLET PO SCH (09:08)
[2021-12-16] MEDS: Loratadine 10 MG TABLET PO SCH (09:09)
[2021-12-16] MEDS: Nystatin SUSP 5 ML UD.LIQ PO SCH ×4 (09:09→20:15)
[2021-12-16] MEDS: Sennosides/Docusate Sodium TABLET PO SCH ×2 (09:10→20:14)
[2021-12-16] MEDS: Furosemide 20 MG TABLET PO SCH ×2 (09:10→15:29)
[2021-12-16] MEDS: Sildenafil Citrate 20 MG TABLET PO SCH ×3 (09:10→20:14)
[2021-12-16] MEDS: Aspirin Enteric Coated 81 MG Tablet PO SCH (09:10)
[2021-12-17] MEDS: Levothyroxine 25 MCG TABLET PO SCH (05:03)
[2021-12-17] MEDS: *HR* Enoxaparin 30 MG/0.3 ML SYRINGE SQ SCH (05:04)
[2021-12-17] MEDS: Furosemide 20 MG TABLET PO SCH ×2 (08:04→15:46)
[2021-12-17] MEDS: Sildenafil Citrate 20 MG TABLET PO SCH ×3 (08:04→20:39)
[2021-12-17] MEDS: Sennosides/Docusate Sodium TABLET PO SCH ×2 (08:04→20:39)
[2021-12-17] MEDS: Loratadine 10 MG TABLET PO SCH (08:04)
[2021-12-17] MEDS: Fenofibrate 54 MG TABLET PO SCH (08:04)
[2021-12-17] MEDS: Nystatin SUSP 5 ML UD.LIQ PO SCH ×4 (08:04→20:41)
[2021-12-17] MEDS: Aspirin Enteric Coated 81 MG Tablet PO SCH (08:04)
[2021-12-18] MEDS: Levothyroxine 25 MCG TABLET PO SCH (05:47)
[2021-12-18] MEDS: *HR* Enoxaparin 30 MG/0.3 ML SYRINGE SQ SCH (05:48)
[2021-12-18] MEDS: Nystatin SUSP 5 ML UD.LIQ PO SCH ×4 (07:56→20:08)
[2021-12-18] MEDS: Acetaminophen 325 MG TABLET PO PRN (07:56)
[2021-12-18] MEDS: Aspirin Enteric Coated 81 MG Tablet PO SCH (07:56)
[2021-12-18] MEDS: Fenofibrate 54 MG TABLET PO SCH (07:57)
[2021-12-18] MEDS: Loratadine 10 MG TABLET PO SCH (07:57)
[2021-12-18] MEDS: Sennosides/Docusate Sodium TABLET PO SCH ×2 (07:58→20:07)
[2021-12-18] MEDS: Sildenafil Citrate 20 MG TABLET PO SCH ×3 (07:58→20:07)
[2021-12-18] MEDS: Furosemide 20 MG TABLET PO SCH (10:26)
[2021-12-19 04:50] LABS: Hematocrit 31.7 % (35.3-44.9); Hemoglobin 10.1 g/dL (11.5-15.4); Mean Corpuscular HGB Conc 31.9 g/dL (31.6-35.5); Mean Corpuscular Hemoglobin 33.1 pg (28.0-33.3); Mean Corpuscular Volume 103.9 fL (83.0-100.0); Mean Platelet Volume 10.4 fL (9.4-12.4); Platelet Count 328 K/mcL (140-400); Red Blood Count 3.05 M/mcL (3.82-4.97); Red Cell Distribution Width 17.7 % (11.5-14.5); White Blood Count 7.2 K/mcL (4.3-11.1)
[2021-12-19 05:16] LABS: Albumin 3.1 g/dL (3.5-5.7); Albumin/Globulin Ratio 1.2 (1.1-2.2); Bilirubin,Total 0.5 mg/dL (0.3-1.0); Calcium 8.5 mg/dL (8.6-10.3); Globulin 2.5 g/dL (2.4-3.5); Magnesium 1.2 mg/dL (1.6-2.6); Total Protein 5.6 g/dL (6.4-8.9)
[2021-12-19] MEDS: Levothyroxine 25 MCG TABLET PO SCH (05:40)
[2021-12-19] MEDS: *HR* Enoxaparin 30 MG/0.3 ML SYRINGE SQ SCH (05:40)
[2021-12-19] MEDS ORDERED: 0.9 % Sodium Chloride 1,000 ML IVC ONE (07:59)
[2021-12-19] MEDS: Sennosides/Docusate Sodium TABLET PO SCH ×2 (08:22→20:39)
[2021-12-19] MEDS: Sildenafil Citrate 20 MG TABLET PO SCH ×3 (08:22→20:39)
[2021-12-19] MEDS: Fenofibrate 54 MG TABLET PO SCH (08:22)
[2021-12-19] MEDS: Acetaminophen 325 MG TABLET PO PRN ×2 (08:23→20:39)
[2021-12-19] MEDS: Loratadine 10 MG TABLET PO SCH (08:23)
[2021-12-19] MEDS: Nystatin SUSP 5 ML UD.LIQ PO SCH ×4 (08:23→20:40)
[2021-12-19] MEDS: Aspirin Enteric Coated 81 MG Tablet PO SCH (08:23)
[2021-12-19] MEDS ORDERED: Magnesium Sulfate 1 GM in 0.9 % Sodium Chloride 1 GM/100 ML IV.SOLN IVPB ONE (08:35)
[2021-12-20] MEDS: *HR* Enoxaparin 30 MG/0.3 ML SYRINGE SQ SCH (06:13)
[2021-12-20] MEDS: Levothyroxine 25 MCG TABLET PO SCH (06:14)
[2021-12-20] MEDS: Fenofibrate 54 MG TABLET PO SCH (08:53)
[2021-12-20] MEDS: Sennosides/Docusate Sodium TABLET PO SCH ×2 (08:53→20:48)
[2021-12-20] MEDS: Acetaminophen 325 MG TABLET PO PRN ×2 (08:53→20:48)
[2021-12-20] MEDS: Nystatin SUSP 5 ML UD.LIQ PO SCH ×4 (08:53→20:49)
[2021-12-20] MEDS: Sildenafil Citrate 20 MG TABLET PO SCH ×3 (08:53→20:48)
[2021-12-20] MEDS: Loratadine 10 MG TABLET PO SCH (08:54)
[2021-12-20] MEDS: Aspirin Enteric Coated 81 MG Tablet PO SCH (08:54)
[2021-12-20] MEDS: Furosemide 20 MG TABLET PO SCH (17:29)
[2021-12-21 05:11] LABS: Hematocrit 30.6 % (35.3-44.9); Hemoglobin 9.8 g/dL (11.5-15.4); Mean Corpuscular Hemoglobin 33.2 pg (28.0-33.3); Mean Corpuscular Volume 103.7 fL (83.0-100.0); Mean Platelet Volume 10.2 fL (9.4-12.4); Platelet Count 314 K/mcL (140-400); Red Blood Count 2.95 M/mcL (3.82-4.97); Red Cell Distribution Width 17.8 % (11.5-14.5); White Blood Count 5.6 K/mcL (4.3-11.1)
[2021-12-21 05:26] LABS: Calcium 8.4 mg/dL (8.6-10.3); Magnesium 1.5 mg/dL (1.6-2.6); Potassium 4.4 mEq/L (3.5-5.1)
[2021-12-21] MEDS: *HR* Enoxaparin 30 MG/0.3 ML SYRINGE SQ SCH (06:22)
[2021-12-21] MEDS: Levothyroxine 25 MCG TABLET PO SCH (06:22)
[2021-12-21] MEDS: Nystatin SUSP 5 ML UD.LIQ PO SCH ×4 (08:53→20:21)
[2021-12-21] MEDS: Fenofibrate 54 MG TABLET PO SCH (08:53)
[2021-12-21] MEDS: Sennosides/Docusate Sodium TABLET PO SCH ×2 (08:53→20:21)
[2021-12-21] MEDS: Loratadine 10 MG TABLET PO SCH (08:54)
[2021-12-21] MEDS: Sildenafil Citrate 20 MG TABLET PO SCH ×3 (08:54→20:22)
[2021-12-21] MEDS: Furosemide 20 MG TABLET PO SCH ×2 (08:54→16:32)
[2021-12-21] MEDS: Aspirin Enteric Coated 81 MG Tablet PO SCH (08:54)
[2021-12-21] MEDS: Acetaminophen 325 MG TABLET PO PRN ×2 (11:43→20:22)
[2021-12-21] MEDS: Melatonin 3 MG TABLET PO PRN (20:21)
[2021-12-22] MEDS: *HR* Enoxaparin 30 MG/0.3 ML SYRINGE SQ SCH (06:02)
[2021-12-22] MEDS: Levothyroxine 25 MCG TABLET PO SCH (06:02)
[2021-12-22] MEDS: Sildenafil Citrate 20 MG TABLET PO SCH ×3 (07:55→20:18)
[2021-12-22] MEDS: Fenofibrate 54 MG TABLET PO SCH (07:56)
[2021-12-22] MEDS: Aspirin Enteric Coated 81 MG Tablet PO SCH (07:56)
[2021-12-22] MEDS: Sennosides/Docusate Sodium TABLET PO SCH ×2 (07:56→20:17)
[2021-12-22] MEDS: Furosemide 20 MG TABLET PO SCH ×2 (07:56→17:00)
[2021-12-22] MEDS: Loratadine 10 MG TABLET PO SCH (07:56)
[2021-12-22] MEDS: Nystatin SUSP 5 ML UD.LIQ PO SCH ×4 (07:56→20:18)
[2021-12-23] MEDS ORDERED: *HR* Metoprolol 5 MG/5 ML VIAL IVP ONE (04:46)
[2021-12-23 05:02] LABS: Hematocrit 29.2 % (35.3-44.9); Hemoglobin 9.3 g/dL (11.5-15.4); Mean Corpuscular HGB Conc 31.8 g/dL (31.6-35.5); Mean Corpuscular Volume 103.5 fL (83.0-100.0); Mean Platelet Volume 10.2 fL (9.4-12.4); Platelet Count 275 K/mcL (140-400); Red Blood Count 2.82 M/mcL (3.82-4.97); Red Cell Distribution Width 17.5 % (11.5-14.5); White Blood Count 5.7 K/mcL (4.3-11.1)
[2021-12-23] MEDS: Levothyroxine 25 MCG TABLET PO SCH (05:17)
[2021-12-23] MEDS: *HR* Enoxaparin 30 MG/0.3 ML SYRINGE SQ SCH (05:17)
[2021-12-23 05:18] LABS: Calcium 9.1 mg/dL (8.6-10.3); Magnesium 1.6 mg/dL (1.6-2.6); Potassium 4.3 mEq/L (3.5-5.1)
[2021-12-23] MEDS: Fenofibrate 54 MG TABLET PO SCH (08:11)
[2021-12-23] MEDS: Aspirin Enteric Coated 81 MG Tablet PO SCH (08:11)
[2021-12-23] MEDS: Furosemide 20 MG TABLET PO SCH ×2 (08:11→16:40)
[2021-12-23] MEDS: Sennosides/Docusate Sodium TABLET PO SCH ×2 (08:11→20:23)
[2021-12-23] MEDS: Loratadine 10 MG TABLET PO SCH (08:11)
[2021-12-23] MEDS: Sildenafil Citrate 20 MG TABLET PO SCH ×3 (08:12→20:23)
[2021-12-23] MEDS: Nystatin SUSP 5 ML UD.LIQ PO SCH ×4 (08:12→20:26)
[2021-12-23] MEDS ORDERED: 0.9 % Sodium Chloride 500 ML IVC ONE (08:43)
[2021-12-23] MEDS ORDERED: DilTIAZem CD (24hr) 120 MG CAP.ER.24H PO SCH (09:00)
[2021-12-23] MEDS ORDERED: 0.9 % Sodium Chloride 1,000 ML IVC SCH ×2 (09:15→11:30)
[2021-12-23] MEDS ORDERED: *HR* Digoxin 0.5 MG/2 ML AMPUL IVP ONE ×2 (13:28→14:34)
[2021-12-24] MEDS: Levothyroxine 25 MCG TABLET PO SCH (04:51)
[2021-12-24] MEDS: *HR* Enoxaparin 30 MG/0.3 ML SYRINGE SQ SCH (04:51)
[2021-12-24 06:39] LABS: Basophils # 0.1 K/mcL (0.0-0.2); Basophils % 1.1 %; Eosinophils # 0.4 K/mcL (0.0-0.6); Eosinophils % 6.6 %; Hematocrit 30.1 % (35.3-44.9); Hemoglobin 9.6 g/dL (11.5-15.4); Immature Granulocytes % 0.4 % (0-4); Lymphocytes # 1.4 K/mcL (0.6-4.6); Lymphocytes % 24.4 %; Mean Corpuscular HGB Conc 31.9 g/dL (31.6-35.5); Mean Corpuscular Volume 103.4 fL (83.0-100.0); Mean Platelet Volume 10.4 fL (9.4-12.4); Monocytes # 0.4 K/mcL (0.0-1.3); Monocytes % 6.9 %; Neutrophils # 3.4 K/mcL (1.6-8.9); Platelet Count 278 K/mcL (140-400); Red Blood Count 2.91 M/mcL (3.82-4.97); Red Cell Distribution Width 17.9 % (11.5-14.5); Segmented Neutrophils % 60.6 %; White Blood Count 5.6 K/mcL (4.3-11.1)
[2021-12-24 06:52] LABS: Calcium 8.8 mg/dL (8.6-10.3); Potassium 4.1 mEq/L (3.5-5.1)
[2021-12-24] MEDS: Loratadine 10 MG TABLET PO SCH (08:28)
[2021-12-24] MEDS: Aspirin Enteric Coated 81 MG Tablet PO SCH (08:28)
[2021-12-24] MEDS: Nystatin SUSP 5 ML UD.LIQ PO SCH ×4 (08:28→20:26)
[2021-12-24] MEDS: Acetaminophen 325 MG TABLET PO PRN ×2 (08:29→20:25)
[2021-12-24] MEDS: Sildenafil Citrate 20 MG TABLET PO SCH ×3 (08:29→20:25)
[2021-12-24] MEDS: Furosemide 20 MG TABLET PO SCH ×2 (08:29→16:27)
[2021-12-24] MEDS: Sennosides/Docusate Sodium TABLET PO SCH ×2 (08:30→20:26)
[2021-12-24] MEDS: Fenofibrate 54 MG TABLET PO SCH (08:30)
[2021-12-24] MEDS ORDERED: *HR* Digoxin 0.125 MG TABLET PO SCH ×3 (09:00→16:42)
[2021-12-24] MEDS: Melatonin 3 MG TABLET PO PRN (20:25)
[2021-12-25 05:07] LABS: Basophils # 0.1 K/mcL (0.0-0.2); Eosinophils # 0.4 K/mcL (0.0-0.6); Eosinophils % 8.1 %; Hematocrit 30.7 % (35.3-44.9); Hemoglobin 9.6 g/dL (11.5-15.4); Immature Granulocytes % 0.4 % (0-4); Lymphocytes # 1.4 K/mcL (0.6-4.6); Lymphocytes % 26.6 %; Mean Corpuscular HGB Conc 31.3 g/dL (31.6-35.5); Mean Corpuscular Hemoglobin 33.1 pg (28.0-33.3); Mean Corpuscular Volume 105.9 fL (83.0-100.0); Mean Platelet Volume 10.5 fL (9.4-12.4); Monocytes # 0.4 K/mcL (0.0-1.3); Monocytes % 7.3 %; Neutrophils # 2.9 K/mcL (1.6-8.9); Platelet Count 271 K/mcL (140-400); Red Cell Distribution Width 17.9 % (11.5-14.5); Segmented Neutrophils % 56.6 %; White Blood Count 5.2 K/mcL (4.3-11.1)
[2021-12-25 05:21] LABS: Calcium 8.9 mg/dL (8.6-10.3); Potassium 4.6 mEq/L (3.5-5.1)
[2021-12-25] MEDS: Levothyroxine 25 MCG TABLET PO SCH (06:08)
[2021-12-25] MEDS: *HR* Enoxaparin 30 MG/0.3 ML SYRINGE SQ SCH (06:08)
[2021-12-25] MEDS: Aspirin Enteric Coated 81 MG Tablet PO SCH (08:21)
[2021-12-25] MEDS: Fenofibrate 54 MG TABLET PO SCH (08:21)
[2021-12-25] MEDS: Acetaminophen 325 MG TABLET PO PRN ×2 (08:21→20:31)
[2021-12-25] MEDS: Sennosides/Docusate Sodium TABLET PO SCH ×2 (08:22→20:31)
[2021-12-25] MEDS: Sildenafil Citrate 20 MG TABLET PO SCH ×3 (08:22→20:31)
[2021-12-25] MEDS: Furosemide 20 MG TABLET PO SCH (08:22)
[2021-12-25] MEDS: Loratadine 10 MG TABLET PO SCH (08:22)
[2021-12-25] MEDS: Nystatin SUSP 5 ML UD.LIQ PO SCH ×4 (08:23→20:32)
[2021-12-25] MEDS: Melatonin 3 MG TABLET PO PRN (20:32)
[2021-12-26] MEDS: Levothyroxine 25 MCG TABLET PO SCH (05:10)
[2021-12-26] MEDS: *HR* Enoxaparin 30 MG/0.3 ML SYRINGE SQ SCH (05:10)
[2021-12-26] MEDS: Fenofibrate 54 MG TABLET PO SCH (08:13)
[2021-12-26] MEDS: Aspirin Enteric Coated 81 MG Tablet PO SCH (08:13)
[2021-12-26] MEDS: Loratadine 10 MG TABLET PO SCH (08:15)
[2021-12-26] MEDS: Nystatin SUSP 5 ML UD.LIQ PO SCH (08:15)
[2021-12-26] MEDS: Sildenafil Citrate 20 MG TABLET PO SCH ×3 (08:15→22:20)
[2021-12-26] MEDS: Acetaminophen 325 MG TABLET PO PRN ×3 (08:15→22:19)
[2021-12-26] MEDS: Furosemide 20 MG TABLET PO SCH (08:15)
[2021-12-26] MEDS: Sennosides/Docusate Sodium TABLET PO SCH ×2 (08:18→22:20)
[2021-12-26] MEDS: Amoxicillin/Clavulanate 500 MG TABLET PO SCH (17:23)
[2021-12-26] MEDS: Melatonin 3 MG TABLET PO PRN (22:20)
[2021-12-26] MEDS ORDERED: Saline Nasal Spray 44 ML BOTTLE NS ONE (23:24)
[2021-12-27] MEDS: Levothyroxine 25 MCG TABLET PO SCH (04:05)
[2021-12-27] MEDS: *HR* Enoxaparin 30 MG/0.3 ML SYRINGE SQ SCH (04:06)
[2021-12-27 04:48] LABS: Hematocrit 28.7 % (35.3-44.9); Hemoglobin 9.3 g/dL (11.5-15.4); Mean Corpuscular HGB Conc 32.4 g/dL (31.6-35.5); Mean Corpuscular Hemoglobin 33.3 pg (28.0-33.3); Mean Corpuscular Volume 102.9 fL (83.0-100.0); Platelet Count 263 K/mcL (140-400); Red Blood Count 2.79 M/mcL (3.82-4.97); Red Cell Distribution Width 17.8 % (11.5-14.5); White Blood Count 4.9 K/mcL (4.3-11.1)
[2021-12-27 05:09] LABS: Calcium 8.8 mg/dL (8.6-10.3); Magnesium 1.7 mg/dL (1.6-2.6); Potassium 4.1 mEq/L (3.5-5.1)
[2021-12-27] MEDS: Sennosides/Docusate Sodium TABLET PO SCH (08:19)
[2021-12-27] MEDS: Fenofibrate 54 MG TABLET PO SCH (08:24)
[2021-12-27] MEDS: Furosemide 20 MG TABLET PO SCH (08:25)
[2021-12-27] MEDS: Amoxicillin/Clavulanate 500 MG TABLET PO SCH (08:25)
[2021-12-27] MEDS: Loratadine 10 MG TABLET PO SCH (08:25)
[2021-12-27] MEDS: Sildenafil Citrate 20 MG TABLET PO SCH (08:25)
[2021-12-27] MEDS: Aspirin Enteric Coated 81 MG Tablet PO SCH (08:25)
[2021-12-27 11:18] VITALS: BP 89/55; PULSE 77; RESP 16; TEMP 97.6; O2SAT 96
== END 2021-12-27 13:01 | disposition other institution (70) | DRG 314 ==
LOC: INPGRE 12-12 19:14 → SUATTDRO 12-12 19:14 → INPGRE 12-20 05:40
PROVIDERS: ADMIT Internal Medicine; ATTEND Family Medicine

== ENCOUNTER 2021-12-27 11:29 | Observation (INO) ==
[2021-12-27] MEDS ORDERED: Ondansetron ODT 4 MG TAB.RAPDIS SL PRN (13:23)
[2021-12-27] MEDS ORDERED: polyethylene glycoL 3350 17 GM POWD.PACK PO PRN (13:23)
[2021-12-27] MEDS ORDERED: Melatonin 3 MG TABLET PO PRN (13:23)
[2021-12-27] MEDS ORDERED: Ipratropium/Albuterol Neb 3 ML IH PRN (13:33)
[2021-12-27] MEDS: Sildenafil Citrate 20 MG TABLET PO SCH ×2 (14:09→21:14)
[2021-12-27] MEDS: Lactobacillus 1 EACH CAP.SPRINK PO SCH (14:09)
[2021-12-27] MEDS: Amoxicillin/Clavulanate 500 MG TABLET PO SCH (17:21)
[2021-12-27] MEDS: Acetaminophen 325 MG TABLET PO PRN (21:14)
[2021-12-28 05:19] LABS: Basophils # 0.1 K/mcL (0.0-0.2); Basophils % 1.1 %; Eosinophils # 0.3 K/mcL (0.0-0.6); Eosinophils % 7.1 %; Hematocrit 29.2 % (35.3-44.9); Hemoglobin 9.4 g/dL (11.5-15.4); Immature Granulocytes % 0.4 % (0-4); Lymphocytes # 1.2 K/mcL (0.6-4.6); Lymphocytes % 25.8 %; Mean Corpuscular HGB Conc 32.2 g/dL (31.6-35.5); Mean Corpuscular Hemoglobin 33.3 pg (28.0-33.3); Mean Corpuscular Volume 103.5 fL (83.0-100.0); Mean Platelet Volume 10.2 fL (9.4-12.4); Monocytes # 0.3 K/mcL (0.0-1.3); Monocytes % 7.1 %; Neutrophils # 2.7 K/mcL (1.6-8.9); Platelet Count 262 K/mcL (140-400); Red Blood Count 2.82 M/mcL (3.82-4.97); Red Cell Distribution Width 17.6 % (11.5-14.5); Segmented Neutrophils % 58.5 %; White Blood Count 4.7 K/mcL (4.3-11.1)
[2021-12-28 05:33] LABS: Albumin/Globulin Ratio 1.3 (1.1-2.2); Bilirubin,Total 0.5 mg/dL (0.3-1.0); Calcium 8.6 mg/dL (8.6-10.3); Globulin 2.3 g/dL (2.4-3.5); Magnesium 1.5 mg/dL (1.6-2.6); Potassium 4.1 mEq/L (3.5-5.1); Total Protein 5.3 g/dL (6.4-8.9)
[2021-12-28] MEDS: *HR* Enoxaparin 30 MG/0.3 ML SYRINGE SQ SCH (06:21)
[2021-12-28] MEDS: Levothyroxine 25 MCG TABLET PO SCH (06:21)
[2021-12-28] MEDS: Fenofibrate 54 MG TABLET PO SCH (09:47)
[2021-12-28] MEDS: Amoxicillin/Clavulanate 500 MG TABLET PO SCH (09:47)
[2021-12-28] MEDS: Loratadine 10 MG TABLET PO SCH (09:47)
[2021-12-28] MEDS: Furosemide 40 MG TABLET PO SCH (09:47)
[2021-12-28] MEDS: Sildenafil Citrate 20 MG TABLET PO SCH ×3 (09:48→20:30)
[2021-12-28] MEDS: Lactobacillus 1 EACH CAP.SPRINK PO SCH (09:48)
[2021-12-28] MEDS: Aspirin Enteric Coated 81 MG Tablet PO SCH (09:48)
[2021-12-28] MEDS: Piperacillin/Tazobactam 3.375 GM in 0.9 % Sodium Chloride Mini Bag 100 ML IVPB SCH ×2 (15:55→23:37)
[2021-12-28] MEDS: Acetaminophen 325 MG TABLET PO PRN (20:30)
[2021-12-29] MEDS: Levothyroxine 25 MCG TABLET PO SCH (03:52)
[2021-12-29] MEDS: *HR* Enoxaparin 30 MG/0.3 ML SYRINGE SQ SCH (03:52)
[2021-12-29] MEDS: Fenofibrate 54 MG TABLET PO SCH (08:27)
[2021-12-29] MEDS: Lactobacillus 1 EACH CAP.SPRINK PO SCH (08:27)
[2021-12-29] MEDS: Acetaminophen 325 MG TABLET PO PRN ×2 (08:28→19:54)
[2021-12-29] MEDS: Aspirin Enteric Coated 81 MG Tablet PO SCH (08:28)
[2021-12-29] MEDS: Loratadine 10 MG TABLET PO SCH (08:29)
[2021-12-29] MEDS: Furosemide 40 MG TABLET PO SCH (08:29)
[2021-12-29] MEDS: Sildenafil Citrate 20 MG TABLET PO SCH ×3 (08:29→19:53)
[2021-12-29] MEDS: Piperacillin/Tazobactam 3.375 GM in 0.9 % Sodium Chloride Mini Bag 100 ML IVPB SCH ×3 (08:30→23:52)
[2021-12-30] MEDS: Levothyroxine 25 MCG TABLET PO SCH (03:59)
[2021-12-30] MEDS: *HR* Enoxaparin 30 MG/0.3 ML SYRINGE SQ SCH (03:59)
[2021-12-30] MEDS: Aspirin Enteric Coated 81 MG Tablet PO SCH (08:33)
[2021-12-30] MEDS: Fenofibrate 54 MG TABLET PO SCH (08:33)
[2021-12-30] MEDS: Furosemide 40 MG TABLET PO SCH (08:34)
[2021-12-30] MEDS: Sildenafil Citrate 20 MG TABLET PO SCH (08:34)
[2021-12-30] MEDS: Loratadine 10 MG TABLET PO SCH (08:34)
[2021-12-30] MEDS: Acetaminophen 325 MG TABLET PO PRN (08:35)
[2021-12-30] MEDS: Lactobacillus 1 EACH CAP.SPRINK PO SCH (08:35)
[2021-12-30] MEDS: Piperacillin/Tazobactam 3.375 GM in 0.9 % Sodium Chloride Mini Bag 100 ML IVPB SCH (08:36)
[2021-12-30 11:58] VITALS: BP 123/62; PULSE 63; RESP 16; TEMP 98.1; O2SAT 95
== END 2021-12-30 16:04 | disposition hospice, home (50) ==
LOC: INPGRE
PROVIDERS: ADMIT Nurse Practitioner; ATTEND Nurse Practitioner